=== PATIENT | male | born 1990 | race Caucasian/White ===

== ENCOUNTER 2019-12-21 15:51 | Inpatient (IN) | payer MEDICAID ==
[~2019-12-21] VITALS: Ht 172.7 cm; Wt 81.6 kg
[2019-12-21] MEDS ORDERED: ARIP5TAB8 PO (17:06)
[2019-12-21] MEDS ORDERED: LORazepam 2 MG TABLET PO PRN (17:30)
[2019-12-21] MEDS ORDERED: HALOPERIDOL 5 MG TABLET PO PRN (17:30)
[2019-12-21] MEDS ORDERED: ZOLPIDEM TARTRATE 10 MG TABLET PO PRN (17:30)
[2019-12-21 18:33] VITALS: BP 130/69
[2019-12-22 07:24] VITALS: BP 132/76
[2019-12-22 08:57] VITALS: BP 120/60
[2019-12-22] MEDS ORDERED: ALBUTEROL SULFATE HFA 90 MCG/PUFF 8 GM INHALER IH PRN (09:00)
[2019-12-22] MEDS ORDERED: ACETAMINOPHEN 325 MG TABLET PO PRN (09:00)
[2019-12-22] MEDS ORDERED: IBUPROFEN 400 MG TABLET PO PRN (09:00)
[2019-12-22] MEDS ORDERED: DOCUSATE SODIUM 100 MG CAPSULE PO PRN (09:00)
[2019-12-22] MEDS ORDERED: MAG HYDROX/AL HYDROX/SIMETH ES 30 ML SUSPENSION UDCUP PO PRN (09:00)
[2019-12-22] MEDS ORDERED: ONDANSETRON HCL 4 MG TABLET PO PRN (09:00)
[2019-12-22] MEDS ORDERED: NICOTINE 14 MG/24 HOUR PATCH TD PRN (09:00)
[2019-12-22] MEDS ORDERED: GuaiFENesin/D-METHORPHAN [SUGAR-FREE] 200-20MG/10 ML SYRUP UDCUP PO PRN (09:00)
[2019-12-22] MEDS ORDERED: MAGNESIUM HYDROXIDE SUSPENSION 30 ML UDCUP PO PRN (09:00)
[2019-12-22] MEDS ORDERED: LOPERAMIDE HCL 2 MG CAPSULE PO PRN (09:00)
[2019-12-22] MEDS ORDERED: PETROLATUM,WHITE 28 GM JELLY TP PRN (09:00)
[2019-12-22] MEDS ORDERED: CloNIDine HCL 0.1 MG TABLET PO PRN (09:00)
[2019-12-22] MEDS: OLANZapine 5 MG TABLET PO SCH (13:26)
[2019-12-22 16:48] VITALS: BP 113/72
[2019-12-23 00:36] VITALS: BP 118/81
[2019-12-23] MEDS ORDERED: OLANZapine 5 MG TABLET PO SCH (09:00)
[2019-12-23] MEDS: OLANZapine 5 MG TABLET PO SCH (09:22)
[2019-12-23] MEDS ORDERED: OLAN5TAB2 PO (15:35)
[2019-12-23 16:19] VITALS: BP 125/87
== END 2019-12-23 17:59 | disposition home or self-care (01) | DRG 885 ==
LOC: B2S 17:23
PROVIDERS: ADMIT Psychiatry & Neurology Psychiatry; ATTEND Psychiatry & Neurology Psychiatry
DX: F25.1 Schizoaffective disorder, depressive type (principal); F10.10 Alcohol abuse, uncomplicated; K59.00 Constipation, unspecified; Z59.0 Homelessness
CPT/HCPCS: Z7610